=== PATIENT | female | born 1950 | race Two or more races ===

== ENCOUNTER 2017-05-05 21:08 | Emergency (ER) | payer MEDICARE, MEDICAID ==
[~2017-05-05] VITALS: Ht 160 cm; Wt 71.0 kg
[2017-05-05] MEDS ORDERED: IBUPROFEN 600MG TABLET PO ONE (21:45)
[2017-05-05 23:25] VITALS: BP 174/81
== END 2017-05-05 23:32 | disposition home or self-care (01) ==
LOC: ER 21:08
DX: S40.012A Contusion of left shoulder, initial encounter (principal); S90.01XA Contusion of right ankle, initial encounter; I10 Essential (primary) hypertension; V89.2XXA Person injured in unspecified motor-vehicle accident, traffic, initial encounter; Y93.89 Activity, other specified; Y92.89 Other specified places as the place of occurrence of the external cause; Y99.8 Other external cause status
CPT/HCPCS: 73030; 73600; 99284

== ENCOUNTER 2020-10-27 12:21 | Inpatient (IN) | payer MEDICARE, OTHER ==
[~2020-10-27] VITALS: Ht 160 cm; Wt 60.9 kg
[2020-10-27] MEDS ORDERED: SODIUM CHLORIDE 0.9% 500 ML IV ONE ×2 (12:45→23:59)
[2020-10-27 13:05] LABS: HEMATOCRIT. 24.6 % (36.0-48.0); HEMOGLOBIN. 7.9 g/dL (12.0-16.0); PLATELET 201 x1000/uL (130-400); RED BLOOD CELL COUNT 3.04 mill/uL (4.2-5.4); RED CELL DISTRIBUTION WIDTH 18.2 % (11.6-14.6)
[2020-10-27 13:08] LABS: CHLORIDE 101 mEq/L (98-107)
[2020-10-27 13:11] LABS: INR 1.3
[2020-10-27 13:43] LABS: PLATELET ESTIMATE NORMAL
[2020-10-27] MEDS ORDERED: SODIUM CHLORIDE 0.9% 1000ML BAG (SEPSIS BOLUS) IV NR (13:45)
[2020-10-27] MEDS ORDERED: ASPIRIN 325MG EC TABLET PO NR (13:45)
[2020-10-27] MEDS ORDERED: VANCOMYCIN 1 G PREMIX 200 ML IV NR (14:00)
[2020-10-27] MEDS ORDERED: PIPERACILLIN/TAZ 3.375G PREMIX 50 ML IV NR (14:00)
[2020-10-27 15:55] LABS: CLARITY URINE CLEAR (CLEAR); COLOR URINE DARK YELLOW (YELLOW); KETONES URINE NEGATIVE (NEGATIVE); LEUKOCYTE ESTERASE URINE 1+ (NEGATIVE); NITRITE URINE NEGATIVE (NEGATIVE); OCCULT BLOOD URINE NEGATIVE (NEGATIVE); PROTEIN URINE TRACE (NEGATIVE); SPECIFIC GRAVITY URINE 1.016 (1.005-1.030)
[2020-10-28] VITALS (10 sets, daily range): BP systolic 99–148; BP diastolic 51–70
[2020-10-28] MEDS ORDERED: CLONIDINE 0.1MG TABLET PO PRN (00:30)
[2020-10-28] MEDS ORDERED: ACETAMINOPHEN 650MG/20.3ML UDC PO PRN (00:30)
[2020-10-28] MEDS: MORPHINE SULFATE 2 MG/ML CPJ (NOT FOR IM USE) IV PRN (00:50)
[2020-10-28] MEDS ORDERED: DEXT 5%/0.45% NACL KCL 20MEQ/L 1,000 ML IV SCH (01:00)
[2020-10-28] MEDS ORDERED: PIPERACILLIN/TAZOBACTAM 3.375 G in DEXTROSE 5% WATER 50 ML IV SCH ×2 (02:00→10:00)
[2020-10-28 07:47] LABS: HEMATOCRIT. 28.5 % (36.0-48.0); HEMOGLOBIN. 8.1 g/dL (12.0-16.0); MEAN CORPUSCULAR HEMOGLOBIN 25.7 pg (28.0-32.0); MEAN CORPUSCULAR VOLUME 90.4 fL (81.0-99.0); MEAN PLATELET VOLUME 8.6 fl (7.4-10.4); PLATELET 91 x1000/uL (130-400); RED BLOOD CELL COUNT 3.15 mill/uL (4.2-5.4); RED CELL DISTRIBUTION WIDTH 19.3 % (11.6-14.6)
[2020-10-28] MEDS: PANTOPRAZOLE SODIUM 40 MG/VIAL IV SCH (08:56)
[2020-10-28 09:50] LABS: PLATELET ESTIMATE DECREASED
[2020-10-28] MEDS ORDERED: LACTULOSE 20G/30ML UDC PO SCH (10:00)
[2020-10-28] MEDS ORDERED: DEXTROSE 5% WATER 1,000 ML IV SCH (10:00)
[2020-10-28] MEDS ORDERED: DEXTROSE 50% WATER 50ML SYRINGE IV PRN (10:30)
[2020-10-28] MEDS ORDERED: CEFEPIME 1,000 MG in DEXTROSE 5% WATER 50 ML IV SCH (11:00)
[2020-10-28] MEDS ORDERED: NALOXONE HCL 0.4MG/ML VIAL IV PRN (11:15)
[2020-10-28] MEDS ORDERED: VANCOMYCIN 750 MG PREMIX 150 ML IV SCH (12:00)
[2020-10-28] MEDS ORDERED: VANCOMYCIN 1250MG in DEXTROSE 5% WATER 250ML IV SCH (12:00)
[2020-10-28] MEDS ORDERED: SODIUM BICARBONATE 100 MEQ in DEXTROSE 5% WATER 1,000 ML IV SCH (14:30)
[2020-10-28] MEDS: SODIUM BICARBONATE 150 MEQ in DEXTROSE 5% WATER 1,000 ML IV SCH (15:09)
[2020-10-29] VITALS (12 sets, daily range): BP systolic 80–106; BP diastolic 49–60
[2020-10-29] MEDS: SODIUM BICARBONATE 150 MEQ in DEXTROSE 5% WATER 1,000 ML IV SCH (04:39)
[2020-10-29 07:11] LABS: HEMATOCRIT. 22.9 % (36.0-48.0); HEMOGLOBIN. 7.4 g/dL (12.0-16.0); MEAN CORPUSCULAR HEMOGLOBIN 26.2 pg (28.0-32.0); MEAN CORPUSCULAR VOLUME 80.8 fL (81.0-99.0); MEAN PLATELET VOLUME 8.5 fl (7.4-10.4); PLATELET 83 x1000/uL (130-400); RED BLOOD CELL COUNT 2.83 mill/uL (4.2-5.4); RED CELL DISTRIBUTION WIDTH 18.1 % (11.6-14.6)
[2020-10-29 07:23] LABS: CHLORIDE 104 mEq/L (98-107)
[2020-10-29 07:29] LABS: PHOSPHORUS 4.2 mg/dL (2.5-4.9)
[2020-10-29 07:31] LABS: CREATINE KINASE 34 IU/L (26-192)
[2020-10-29 08:37] LABS: BG BASE EXCESS -3.7 mmol/L (-2.0-2.0); BG CARBOXYHEMOGLOBIN 0.8 % (0.5-1.5); BG DEOXYHEMOGLOBIN 1.4 % (0.0-5.0); BG FRACTION INSPIRED OXYGEN 28; BG HCO3 ACT 18.8 mmol/L (22.0-26.0); BG METHEMOGLOBIN 0.3 % (0.0-1.5); BG OXYGEN SATURATION 98.6 % (92.0-98.5); BG OXYHEMOGLOBIN 97.5 % (94.0-97.0); BG PCO2 25.2 mmHg (35.0-45.0); BG PH 7.491 (7.350-7.450); BG PO2 123.7 mmHg (75.0-100.0); BG SAMPLE SITE RIGHT RADIAL; BG TOTAL HEMOGLOBIN 8.2 g/dL (12.0-18.0); BG VENT MODE NASAL CANNULA
[2020-10-29] MEDS: PANTOPRAZOLE SODIUM 40 MG/VIAL IV SCH (09:29)
[2020-10-29] MEDS: DEXT 5%/0.9% NACL 1,000 ML IV SCH ×2 (09:48→19:55)
[2020-10-29] MEDS: CEFEPIME 1,000 MG in DEXTROSE 5% WATER 50 ML IV SCH (13:00)
[2020-10-29 14:00] LABS: PLATELET ESTIMATE DECREASED
[2020-10-29] MEDS: MIDODRINE HCL 5MG TABLET PO SCH (19:54)
[2020-10-30] VITALS (12 sets, daily range): BP systolic 89–111; BP diastolic 42–62
[2020-10-30] MEDS: DEXT 5%/0.9% NACL 1,000 ML IV SCH ×2 (05:48→16:56)
[2020-10-30 06:40] LABS: HEMATOCRIT. 29.3 % (36.0-48.0); MEAN CORPUSCULAR HEMOGLOBIN 25.3 pg (28.0-32.0); MEAN CORPUSCULAR VOLUME 82.7 fL (81.0-99.0); MEAN PLATELET VOLUME 10.3 fl (7.4-10.4); PLATELET 93 x1000/uL (130-400); RED BLOOD CELL COUNT 3.54 mill/uL (4.2-5.4); RED CELL DISTRIBUTION WIDTH 18.6 % (11.6-14.6)
[2020-10-30 06:54] LABS: CHLORIDE 105 mEq/L (98-107)
[2020-10-30 07:10] LABS: PHOSPHORUS 4.1 mg/dL (2.5-4.9)
[2020-10-30] MEDS: MIDODRINE HCL 5MG TABLET PO SCH ×3 (08:03→16:47)
[2020-10-30] MEDS: PANTOPRAZOLE SODIUM 40 MG/VIAL IV SCH (08:03)
[2020-10-30] MEDS: CEFEPIME 1,000 MG in DEXTROSE 5% WATER 50 ML IV SCH (12:08)
[2020-10-30] MEDS: VANCOMYCIN 500 MG PREMIX 100 ML IV SCH (16:47)
[2020-10-30 23:05] LABS: PLATELET ESTIMATE DECREASED
[2020-10-31] VITALS (12 sets, daily range): BP systolic 105–132; BP diastolic 21–86
[2020-10-31] MEDS: DEXT 5%/0.9% NACL 1,000 ML IV SCH ×3 (02:00→23:17)
[2020-10-31 06:20] LABS: HEMATOCRIT. 26.6 % (36.0-48.0); HEMOGLOBIN. 8.2 g/dL (12.0-16.0); MEAN CORPUSCULAR HEMOGLOBIN 25.6 pg (28.0-32.0); MEAN CORPUSCULAR VOLUME 82.9 fL (81.0-99.0); MEAN PLATELET VOLUME 9.8 fl (7.4-10.4); PLATELET 99 x1000/uL (130-400); RED BLOOD CELL COUNT 3.21 mill/uL (4.2-5.4); RED CELL DISTRIBUTION WIDTH 18.7 % (11.6-14.6)
[2020-10-31 07:10] LABS: PHOSPHORUS 3.9 mg/dL (2.5-4.9)
[2020-10-31] MEDS: MIDODRINE HCL 5MG TABLET PO SCH ×3 (08:33→17:03)
[2020-10-31] MEDS: PANTOPRAZOLE SODIUM 40 MG/VIAL IV SCH (08:45)
[2020-10-31] MEDS ORDERED: DEXTROSE 50% WATER 50ML SYRINGE IV PRN (12:00)
[2020-10-31] MEDS: BLOOD SUGAR DIAGNOSTIC STRIP TEST SCH ×3 (12:04→21:21)
[2020-10-31] MEDS: INSULIN LISPRO 100 UNITS/ML SUBCUT SCH ×3 (12:25→21:22)
[2020-10-31] MEDS: CEFEPIME 1,000 MG in DEXTROSE 5% WATER 50 ML IV SCH (13:12)
[2020-10-31] MEDS: MORPHINE SULFATE 2 MG/ML CPJ (NOT FOR IM USE) IV PRN (15:41)
[2020-10-31] MEDS: VANCOMYCIN 500 MG PREMIX 100 ML IV SCH (17:00)
[2020-11-01] VITALS (8 sets, daily range): BP systolic 103–138; BP diastolic 49–67
[2020-11-01 03:52] LABS: PLATELET ESTIMATE SLIGHTLY DECREASED
[2020-11-01] MEDS: BLOOD SUGAR DIAGNOSTIC STRIP TEST SCH ×2 (06:59→12:39)
[2020-11-01] MEDS: INSULIN LISPRO 100 UNITS/ML SUBCUT SCH ×2 (07:20→12:44)
[2020-11-01] MEDS: PANTOPRAZOLE SODIUM 40 MG/VIAL IV SCH (08:57)
[2020-11-01] MEDS: MIDODRINE HCL 5MG TABLET PO SCH ×2 (08:57→12:43)
[2020-11-01] MEDS ORDERED: LEVO750T46 MT (09:44)
[2020-11-01 12:06] LABS: HEMATOCRIT. 24.7 % (36.0-48.0); HEMOGLOBIN. 8.1 g/dL (12.0-16.0); MEAN CORPUSCULAR HEMOGLOBIN 26.5 pg (28.0-32.0); MEAN CORPUSCULAR VOLUME 80.4 fL (81.0-99.0); MEAN PLATELET VOLUME 9.4 fl (7.4-10.4); PLATELET 97 x1000/uL (130-400); RED BLOOD CELL COUNT 3.07 mill/uL (4.2-5.4); RED CELL DISTRIBUTION WIDTH 18.5 % (11.6-14.6)
[2020-11-01 12:17] LABS: PHOSPHORUS 3.7 mg/dL (2.5-4.9)
[2020-11-01] MEDS: CEFEPIME 1,000 MG in DEXTROSE 5% WATER 50 ML IV SCH (12:43)
[2020-11-01] MEDS: DEXT 5%/0.9% NACL 1,000 ML IV SCH (12:44)
[2020-11-01 15:42] LABS: PLATELET ESTIMATE DECREASED
[2020-11-01] MEDS ORDERED: DOCUSATE SODIUM 100MG CAPSULE PO SCH (17:00)
== END 2020-11-01 17:48 | disposition hospice, home (50) | DRG 720 ==
LOC: ER 12:41 → EDBEDREQ 13:44 → EDBEDREQTM 13:44 → EDBEDREQ 17:16 → EDBEDREQTM 17:16 → MICUSO 20:17 → 7EST 23:27 → 3WST 10-28 13:25
PROVIDERS: ADMIT Internal Medicine; ATTEND Internal Medicine
DX: A41.51 Sepsis due to Escherichia coli [E. coli] (principal); N17.0 Acute kidney failure with tubular necrosis; E43 Unspecified severe protein-calorie malnutrition; E87.2 Acidosis; D69.6 Thrombocytopenia, unspecified; C25.9 Malignant neoplasm of pancreas, unspecified; E87.1 Hypo-osmolality and hyponatremia; C78.00 Secondary malignant neoplasm of unspecified lung; C78.7 Secondary malignant neoplasm of liver and intrahepatic bile duct; Z66 Do not resuscitate; Z51.5 Encounter for palliative care; D50.9 Iron deficiency anemia, unspecified; Z20.822 Contact with and (suspected) exposure to COVID-19; R65.20 Severe sepsis without septic shock; I95.9 Hypotension, unspecified; I11.9 Hypertensive heart disease without heart failure; N39.0 Urinary tract infection, site not specified; Z98.84 Bariatric surgery status; Z68.23 Body mass index [BMI] 23.0-23.9, adult; Z82.49 Family history of ischemic heart disease and other diseases of the circulatory system; Z90.411 Acquired partial absence of pancreas; Z92.21 Personal history of antineoplastic chemotherapy
CPT/HCPCS: 36415; 36600; 71045; 74176; 76700; 80048; 80053; 80076; 81003; 82140; 82375; 82550; 82805; 82962; 83036; 83605; 83735; 84100; 84145; 84484; 85025; 85384; 86850; 86900; 86920; 87077; 87186; 87426; 93005; 97162; 99291; C9113; J0692; J1815; J2270; J2543; J3370; J3490; J7030; J7042; J7060; J7070